=== PATIENT | male | born 1945 | race Caucasian/White ===

== ENCOUNTER → 2017-03-20 | Outpatient (CLI) | payer MEDICARE ==
--- NOTE | 2017-03-20 22:08 | MR ---
EXAMINATION TYPE: MR shoulder RT wo con DATE OF EXAM: 03/20/2017 COMPARISON: NONE HISTORY: shoulder pain x6 months TECHNIQUE: Multiplanar, multisequence imaging of the right shoulder is performed without contrast. FINDINGS: Rotator Cuff: Supraspinatus and infraspinatus tendons are intact. There is no evidence of tendon retr action to suggest full-thickness rotator cuff tear. r there are small articular surface of the infras pinatus tendon measuring 4 mm in AP diameter on parasagittal image 22 and 2 mm transverse diameter on paracoronal image 13. Some additional partial tear is seen proximal to this on paracoronal image 13 and parasagittal image 21. Rotator cuff muscle bulk is preserved. Subscapularis tendon is intact. Acromioclavicular Joint: There is mild spurring and joint space loss. Inferior fat plane is maintaine d. Slight type II downsloping acromion is noted. Glenohumeral Joint: There is joint space loss with moderate to large glenohumeral joint effusion. The re is mild spurring from inferior medial humeral head. Labrum: The labrum appears grossly intact given limitation of non-arthrogram study. Biceps Tendon: The long head of biceps is in normal location within bicipital groove. Bone marrow signal: No focal abnormal marrow signal is appreciated. Other: No additional significant abnormality is appreciated. IMPRESSION: 1. Moderate to advanced glenohumeral joint arthropathy as detailed above. 2. Partial tears of distal infraspinatus tendon. No full-thickness rotator cuff or labral tear is see n. 3. Type II downsloping acromion with mild degenerative changes acromioclavicular joint, no convincing evidence for impingement however.
== END | disposition home or self-care (01) ==
LOC: RADMRIMAIN 19:34
PROVIDERS: ATTEND Family Medicine
DX: S46.011A Strain of muscle(s) and tendon(s) of the rotator cuff of right shoulder, initial encounter (principal); M19.011 Primary osteoarthritis, right shoulder

== ENCOUNTER 2017-04-05 11:42 | Day surgery (SDC) | payer MEDICARE ==
[2017-04-03 15:30] VITALS: BMI 28.4
[~2017-04-05 11:42] MED LIST: HYDROmorphone 1 MG/ML 1 ML SYRINGE IVP PRN; LIDOCAINE 1% 20 ML VIAL (10MG/ML) FOR IV START INTRADERMA PRN; ONDANSETRON 4 MG/2 ML VIAL IVP ONE; Pre Op ABX Message 1 EACH MISC MISCELLANE ONE
[2017-04-05 12:22] VITALS: RESP 16
[2017-04-05] MEDS ORDERED: MIDAZOLAM 2 MG/2 ML VIAL IV ONE (12:30)
[2017-04-05] MEDS: LACTATED RINGERS 1,000 ML IV SCH ×3 (12:32→16:33)
[2017-04-05] MEDS ORDERED: ONDANSETRON 4 MG/2 ML VIAL IVP ONE (12:48)
[2017-04-05] MEDS ORDERED: SUCCINYLCHOLINE CHLORIDE 100 MG/5 ML SYR IV ONE (13:10)
[2017-04-05] MEDS ORDERED: ePHEDrine 50 MG/ML 1 ML AMP ONE (13:10)
[2017-04-05] MEDS ORDERED: PROPOFOL 10 MG/ML 20 ML VIAL IV ONE (13:10)
[2017-04-05] MEDS ORDERED: ROPIVACAINE 5 MG/ML 30 ML VIAL ONE (13:10)
[2017-04-05] MEDS ORDERED: LIDOCAINE 2%-EPI 1:100,000 20 ML VIAL ONE (13:10)
[2017-04-05] MEDS ORDERED: GLYCOPYRROLATE 0.2 MG/ML 2 ML VIAL ONE (13:10)
[2017-04-05] MEDS ORDERED: fentaNYL (PF) 50 MCG/ML 2 ML AMP ONE (13:10)
[2017-04-05] MEDS ORDERED: ROCURONIUM BROMIDE 10 MG/ML 10 ML VIAL IV ONE (13:10)
[2017-04-05] MEDS ORDERED: LACTATED RINGERS 1,000 ML IV ONE (13:10)
[2017-04-05] MEDS ORDERED: LIDOCAINE 1% INJ 10MG/ML (20 ML MDV) ONE (13:10)
[2017-04-05] MEDS ORDERED: PHENYLEPHRINE-0.9% NACL SYG 1 MG/10 ML SYRINGE ONE (13:10)
[2017-04-05] MEDS ORDERED: NEOSTIGMINE 1 MG/ML 10 ML VIAL ONE (13:10)
[2017-04-05] MEDS ORDERED: MIDAZOLAM 2 MG/2 ML VIAL ONE (13:10)
[2017-04-05] MEDS ORDERED: SODIUM CHLORIDE 0.9% 50 ML with ceFAZolin 2,000 MG IV ONE ×4 (13:27)
[2017-04-05] MEDS ORDERED: ceFAZolin 1,000 MG in SODIUM CHLORIDE 0.9% 1,000 ML IRRIGATION ONE (13:58)
[2017-04-05] MEDS ORDERED: TEMAZEPAM 15 MG CAP PO PRN (14:55)
[2017-04-05] MEDS ORDERED: diphenhydrAMINE 25 MG CAP PO PRN (14:55)
[2017-04-05] MEDS ORDERED: ONDANSETRON 4 MG/2 ML VIAL IVP PRN (14:55)
[2017-04-05] MEDS ORDERED: HYDROmorphone 1 MG/ML 1 ML SYRINGE IVP PRN ×3 (14:55)
[2017-04-05] MEDS ORDERED: hydrOXYzine PAMOATE 25 MG CAP PO PRN (14:55)
[2017-04-05] MEDS ORDERED: HYDROcodone/APAP 5-325MG 1 EACH TAB PO PRN (14:55)
[2017-04-05] MEDS ORDERED: SENNOSIDES-DOCUSATE SODIUM 1 EACH TAB PO PRN (14:55)
[2017-04-05] MEDS: ceFAZolin 2 GM in SODIUM CHLORIDE 0.9% 100 ML IVPB SCH (23:11)
[2017-04-06] MEDS: HYDROcodone/APAP 5-325MG 1 EACH TAB PO PRN ×2 (00:56→07:43)
[2017-04-06] MEDS: LACTATED RINGERS 1,000 ML IV SCH ×3 (02:31→10:46)
[2017-04-06] MEDS: ceFAZolin 2 GM in SODIUM CHLORIDE 0.9% 100 ML IVPB SCH (05:23)
[2017-04-06 08:07] VITALS: BP 126/70; PULSE 81; TEMP 97.9
--- NOTE | 2017-04-06 10:25 | P.DS ---
Providers Attending physician: Chaim Mckeon Primary care physician: Paul Wall - Discharge Diagnosis(es) (1) Rotator cuff tear, right Current Visit: Yes Status: Acute (2) S/P rotator cuff repair Current Visit: Yes Status: Acute Hospital Course: This is a 72-year-old male with a known history of rotator cuff tear and subacromial impingement syndrome of the right shoulder. The patient presents for evaluation. After discussion and consideration patient elects to proceed with acromioplasty excision distal end of the clavicle and rotator cuff repair. The patient is seen preoperatively by Dr. Mckeon and cleared for surgery. Patient is admitted to [facility] on 04/05/2017 for rotator cuff repair. The procedures performed without complication or sequelae. The patient is doing well postoperatively. Labs and vital signs are stable on day of discharge. On day of discharge patient's shoulder incision is healing well. There is minimal erythema there is no drainage noted at this time. There is minimal soft tissue swelling to the right shoulder. Patient has full hand and wrist motion without difficulty or pain. Neurovascular status to the right upper extremity is intact. Patient is discharged to home in good condition. Please see med rec for accurate list of home medications. Plan - Discharge Summary New Discharge Prescriptions: New HYDROcodone/APAP 5-325MG [[place] 5-325] 1 - 2 tab PO Q4-6H PRN #90 tab PRN Reason: Pain Sennosides-Docusate Sodium [Senokot-S] 1 tab PO BID #60 tablet No Action amLODIPine BESYLATE/BENAZEPRIL [amLODIPine BESYLATE/BENAZEPRIL 5-20 mg] 1 cap PO DAILY Simvastatin [Zocor] 20 mg PO DAILY Aspirin 81 mg PO DAILY Vitamin E 1,000 unit PO DAILY Mesalamine [Lialda] 2.4 gm PO DAILY Multivitamin [Multiple Vitamins] 1 each PO DAILY Discharge Medication List Aspirin 81 mg PO DAILY 04/03/17 [History] Mesalamine [Lialda] 2.4 gm PO DAILY 04/03/17 [History] Simvastatin [Zocor] 20 mg PO DAILY 04/03/17 [History] Vitamin E 1,000 unit PO DAILY 04/03/17 [History] amLODIPine BESYLATE/BENAZEPRIL [amLODIPine BESYLATE/BENAZEPRIL 5-20 mg] 1 cap PO DAILY 04/03/17 [History] Multivitamin [Multiple Vitamins] 1 each PO DAILY 04/05/17 [History] HYDROcodone/APAP 5-325MG [[place] 5-325] 1 - 2 tab PO Q4-6H PRN #90 tab 04/06/17 [ Rx] Sennosides-Docusate Sodium [Senokot-S] 1 tab PO BID #60 tablet 04/06/17 [Rx] Follow up Appointment(s)/Referral(s): Chaim Mckeon DO [Doctor of Osteopathic Medicine] - 2 Weeks Activity/Diet/Wound Care/Special Instructions: Maintain sling for comfort. Change dressing 24-48 hours postop. Discharge Disposition: HOME SELF-CARE
--- NOTE | 2017-04-08 19:21 | OP ---
DATE OF SERVICE: 04/05/2017 SURGEON: AGUILA LOONEY DO DIRECTOR TRANSPORTATION: PREOPERATIVE DIAGNOSIS: Chronic right rotator cuff impingement syndrome and partial tear. POSTOPERATIVE DIAGNOSIS: Chronic right rotator cuff impingement syndrome and partial tear. OPERATION: Resection distal right clavicle, decompression acromioplasty, and right rotator cuff repair. ANESTHESIA: ESTIMATED BLOOD LOSS: SPECIMENS REMOVED: COMPLICATIONS: OPERATIVE FINDINGS: DESCRIPTION OF PROCEDURE: The patient is taken to the operative suite, placed in supine position. General inhalation anesthesia performed bu Department of Anesthesiology. Placed in beach chair position, appropriately padded and secured. Betadine prep was carried out over the shoulder. Sterile drapes applied in the usual manner. An anterolateral incision developed over the acromion. Sharp dissection through the subcutaneous tissue was performed.The superior clavicle ligament was identified and dissected. The distal 1cm of the clavicle was excised. Anterior deltoid muscle was dissected along the musculotendinous junction of the acromion. Anterolateral proximal decompression acromioplasty was performed. Direct visualization of partial tear noted. Repair of that was performed with #1 Ethibond suture in running fashion. The area was irrigated with antibiotic solution. The deltoid was reapproximated with #1 Ethibond suture. Deep fascia approximated with Vicryl suture in running fashion. Subcutaneous tissue approximated with 3-0 Vicryl suture in running fashion. Skin was approximated with 3-0 Vicryl suture in subcuticular fashion. Incision was secured with Dermabond. Sterile dressing was applied. He was placed in abductor pillow splint. Transferred to recovery room in satisfactory postop condition. GROSS PATHOLOGY: Chronic right shoulder with rotator cuff impingement and partial tear rotator cuff with adhesive capsulitis right shoulder. [facility]OSPITALMarla
== END 2017-04-06 11:25 | disposition home or self-care (01) ==
LOC: OR 11:42 → 3SUR 14:21 → OR 04-06 11:25
PROVIDERS: ATTEND Orthopaedic Surgery
DX: M75.111 Incomplete rotator cuff tear or rupture of right shoulder, not specified as traumatic (principal); M75.41 Impingement syndrome of right shoulder; M75.01 Adhesive capsulitis of right shoulder; M19.011 Primary osteoarthritis, right shoulder; E78.5 Hyperlipidemia, unspecified; I10 Essential (primary) hypertension; Z79.899 Other long term (current) drug therapy
CPT/HCPCS: 64415; 23120; 23412; 23130; J2250; J2710; J0690 ×4; J2405; J2001; J3010; J2795; J2370; J0330; J2704